=== PATIENT | male | born 2000 | race Caucasian/White ===

== ENCOUNTER 2020-03-02 18:13 | Emergency (ER) | payer MEDICAID, SELFPAY ==
[2020-03-02 18:22] VITALS: BP 128/81; PULSE 95; RESP 20; TEMP 36.7; O2SAT 98; BMI 38.0
[2020-03-02 19:13] VITALS: BP 118/73; PULSE 90; RESP 16; TEMP 36.6; O2SAT 97
[2020-03-02] MEDS: methylPREDNISolone Sod Succ/PF 125 MG/2 ML VIAL IVPUSH (19:38)
[2020-03-02] MEDS: diphenhydrAMINE HCL 50 MG/ML VIAL 25 MG IVPUSH (19:38)
[2020-03-02] MEDS: Famotidine/PF 20 MG/2 ML VIAL IVPUSH (19:38)
[2020-03-02] MEDS: 0.9 % Sodium Chloride 1,000 ML 999 ML IVCONT (19:40)
--- NOTE | 2020-03-02 19:43 | ED.ALLEREA ---
HPI - Allergic Reaction General Chief complaint: Allergic Reaction Stated complaint: allergic reaction Time Seen by Provider: 03/02/20 18:57 Source: patient Mode of arrival: ambulatory Limitations: no limitations History of Present Illness HPI narrative: 20-year-old male presents with urticaria to his arms, hands, face and chest. Does not know what he was exposed to and has had an experience like this several months ago. He he did take Benadryl 50 mg twice today, once at noon and once at 2:00 p.m. With minimal effect. Patient does not report any respiratory problems, pain on inspiration, chest pain or pressure, palpitations, shortness of breath, stridor, difficulty swallowing, difficulty managing secretions, edema, abdominal pain, nausea, vomiting, diarrhea, or constipation. MD complaint: allergic reaction and hives Onset (ago): hour(s) ( Several) Exposure: unknown Symptoms: rash and itching Severity: moderate Treatment prior to arrival: benadryl Previous Allergic Reaction History: prior ED visit(s) Related Data Previous Rx's Medication Instructions Recorded diphenhydramine HCl [Benadryl] 25 mg PO Q6H 3 Days #12 cap 03/02/20 famotidine [Pepcid] 20 mg PO DAILY 5 Days #5 tab 03/02/20 prednisone 60 mg PO DAILY 5 Days #15 tab 03/02/20 Allergies Allergy/AdvReac Type Severity Reaction Status Date / Time No Known Allergies Allergy Unverified 01/04/20 19:14 [No Known Allergies*] Review of Systems Review of Systems: Constitutional: No Fever, No Chills ENT/Mouth: no oral swelling, No Hoarseness, No Swallowing Difficulty Eyes: No Eye Pain, No Swelling, No Redness Cardiovascular: No Chest Pain, No SOB Respiratory: No Cough, No Sputum, No Wheezing, No Smoke Exposure, No Dyspnea Gastrointestinal: No Nausea, No Vomiting, No Diarrhea, No abdominal Pain Genitourinary: No Dysuria, No Urinary Frequency, No Hematuria Musculoskeletal: No joint pain, No Myalgias, No Joint Swelling Skin: No Skin Lesions, positive rash Neuro: No Weakness, No Numbness, No Headache Psych: No Anxiety/Panic, No Depression Heme/Lymph: No Bruising, No Lymphadenopathy Endocrine: No Polyuria, No Polydipsia Yes all other systems are reviewed and are negative [facility] Past Medical History Attestation statement: The following information was validated with the patient. Medical History No known health problems Social History Social History Alcohol intake: never Smoking Status: Never smoker Use of substances other than those prescribed or required for medical reasons: No Advance Directives: No Advance Directives Information Provided: Yes Physical Exam Vital Signs: Vital Signs: Last Vital Signs Temp 97.9 F 03/02/20 19:13 Pulse 90 03/02/20 19:13 Resp 16 03/02/20 19:13 BP 118/73 03/02/20 19:13 Pulse Ox 97 03/02/20 19:13 Body Mass Index 38.0 Appearance: Alert. Oriented X3. No acute distress. Eyes: Pupils equal, round and reactive to light. ENT: Pharynx normal. No edema noted. Neck: Normal inspection. Neck supple. CVS: Normal heart rate and rhythm. Pulses normal. Respiratory: No respiratory distress. Breath sounds normal. Lung sounds clear in all lobes, no tracheal stridor noted. Abdomen: Soft and nontender. Skin: urticaria to face, hands, arms, and chest. Skin warm and dry. Normal skin color. Normal skin turgor. Extremities: No lower extremity edema. Neuro: No motor deficit. No sensory deficit. Cranial nerves 2-12 intact. Course Course Course Narrative: 20-year-old male with urticaria after none known exposure, took Benadryl twice today with minimal effect. Plan of care is for fluid resuscitation, IV Pepcid, IV Benadryl, and Solu-Medrol. We will re-evaluate in approximately 1 hour after medication administration. Urticaria visibly decreased, pink spots to hands, urticaria no longer present to forearms and and pinkness to face no longer present. Lung sounds are clear to auscultation all lobes, no stridor noted trachea, cranial nerves 2-12 intact, no angioedema noted. Plan of care is to discharge home, patient must follow up with primary care physician for allergy testing. He does verbalize understanding of and agrees to plan of care discharge home. We will give Benadryl q.6 for the next 3 days, and prednisone burst. MDM - Allergic Reaction Differential Diagnosis Differential diagnosis: Likely allergic reaction, contact dermatitis, adverse reaction to drug, viral enanthem and urticaria Medical Records Attestation: I reviewed the patient's medical records. Lab Data Attestation: I reviewed the patient's lab results. Discharge Plan Discharge Clinical Impression: Allergic reaction, Urticaria Patient Disposition: Home, Self-Care Instructions: Urticaria (ED), General Allergic Reaction (ED) Additional Instructions: you were evaluated for an allergic reaction. Please follow-up with primary care physician as you need allergy testing this is your 2nd emergency department visit this year for urticaria and allergic reaction. Please take Benadryl 50 mg every 6 hours for the next 3 days and then as needed. Take prednisone 60 mg every morning for the next 5 days. If symptoms persist or get worse return to the emergency department. Thank you for choosing this emergency department for evaluation. Please follow-up with primary care physician as needed. Return to the emergency department for any new, concerning, or worsening symptoms. Prescriptions: New prednisone 20 mg tablet 60 mg PO DAILY 5 Days Qty: 15 RF: 0 famotidine [Pepcid] 20 mg tablet 20 mg PO DAILY 5 Days Qty: 5 RF: 0 diphenhydramine HCl [Benadryl] 25 mg capsule 25 mg PO Q6H 3 Days Qty: 12 RF: 0 Stand Alone Forms: Work/School Release Interventions: ED Discharge Assessment Last Done: 03/02/20 21:15 Discharge Date/Time: 03/02/20 21:16
== END 2020-03-02 21:16 | disposition home or self-care (01) ==
PROVIDERS: Emergency Provider Emergency Medicine; PCP Pediatrics
DX: L50.0 Allergic urticaria (principal); Z79.899 Other long term (current) drug therapy
CPT/HCPCS: 96361; 96374; 96375; 99284; J1200; J2930

== ENCOUNTER 2020-03-25 16:58 | Emergency (ER) | payer MEDICAID, SELFPAY ==
[2020-03-25 17:04] VITALS: BP 105/65; PULSE 123; RESP 16; TEMP 37.1; O2SAT 95; BMI 38.0
--- NOTE | 2020-03-25 19:40 | ED.ALLEREA ---
HPI - Allergic Reaction General Chief complaint: Allergic Reaction Stated complaint: Alergic reaction Time Seen by Provider: 03/25/20 19:40 Source: patient Mode of arrival: ambulatory Limitations: no limitations History of Present Illness HPI narrative: patient with history of chronic aortic area for last 1 year seen by a GI specialist had many tests done Benadryl as needed. On Xolair injections monthly comes here with urticarial rash for last few days getting worse taking Benadryl with still not getting better complaining of slight upper lip swelling no difficulty in swallowing or shortness of breath MD complaint: allergic reaction, hives and facial swelling Onset (ago): month(s) Exposure: unknown Related Data Previous Rx's Medication Instructions Recorded diphenhydramine HCl [Benadryl] 25 mg PO Q6H 3 Days #12 cap 03/02/20 famotidine [Pepcid] 20 mg PO DAILY 5 Days #5 tab 03/02/20 prednisone 60 mg PO DAILY 5 Days #15 tab 03/02/20 montelukast [Singulair] 10 mg PO BEDTIME #30 tab 03/25/20 prednisone 40 mg PO DAILY #10 tab 03/25/20 Allergies Allergy/AdvReac Type Severity Reaction Status Date / Time No Known Allergies Allergy Verified 03/25/20 17:06 [No Known Allergies*] Review of Systems Review of Systems: REVIEW OF SYSTEMS: Pertinent positives and negatives are stated above in the history. GEN: no fevers, chills, fatigue HEENT: no nasal congestion, sore throat, ear pain upper lip slight swelling+ tongue is normal NEURO: no headache, dizziness, focal weakness PULM: no cough, shortness of breath CV: no chest pain, palpitations, LE edema ABD: no abdominal pain, nausea, vomiting, diarrhea : no dysuria, urgency, frequency SKIN: hives all over ROS otherwise negative x 10 PMFSH Past Medical History Medical History No known health problems Social History Social History Alcohol intake: never Smoking Status: Never smoker Advance Directives: No Physical Exam Vital Signs: Vital Signs: Last Vital Signs Temp 98.7 F 03/25/20 17:04 Pulse 123 H 03/25/20 17:04 Resp 16 03/25/20 17:04 BP 105/65 03/25/20 17:04 Pulse Ox 95 03/25/20 17:04 Body Mass Index 38.0 Appearance: Alert. Oriented X3. No acute distress. Eyes: Pupils equal, round and reactive to light. ENT: Pharynx normal. slight swelling of the upper lip, tongue is normal uvula is normal no stridor Neck: Normal inspection. Neck supple. CVS: Normal heart rate and rhythm. Pulses normal. Respiratory: No respiratory distress. Breath sounds normal. Abdomen: Soft and nontender. Skin: Skin warm and dry. urticarial rash all over extremities and trunk. Normal skin turgor. Extremities: No lower extremity edema. Good range of movement Neuro: Oriented X 3. No motor deficit. No sensory deficit. Discharge Plan Discharge Clinical Impression: Urticaria Patient Disposition: Home, Self-Care Instructions: Urticaria (ED) Additional Instructions: continue Benadryl 1-2 tablets every 6 hours advised starting prednisone from tomorrow. Follow-up with allergic specialist Prescriptions: New prednisone 20 mg tablet 40 mg PO DAILY Qty: 10 RF: 0 montelukast [Singulair] 10 mg tablet 10 mg PO BEDTIME Qty: 30 RF: 0 No Action prednisone 20 mg tablet 60 mg PO DAILY 5 Days Qty: 15 RF: 0 famotidine [Pepcid] 20 mg tablet 20 mg PO DAILY 5 Days Qty: 5 RF: 0 diphenhydramine HCl [Benadryl] 25 mg capsule 25 mg PO Q6H 3 Days Qty: 12 RF: 0
[2020-03-25] MEDS: dexAMETHasone 2 MG TABLET 10 MG PO (20:02)
[2020-03-25 20:05] VITALS: BP 116/76; PULSE 103; RESP 17; O2SAT 97
== END 2020-03-25 20:13 | disposition home or self-care (01) ==
PROVIDERS: Emergency Provider Internal Medicine; PCP Pediatrics
DX: L50.9 Urticaria, unspecified (principal); T78.40XA Allergy, unspecified, initial encounter; X58.XXXA Exposure to other specified factors, initial encounter
CPT/HCPCS: 99283; J8540

== ENCOUNTER 2020-03-27 13:16 | Emergency (ER) | payer MEDICAID, SELFPAY ==
[2020-03-27 13:22] VITALS: BP 109/65; PULSE 88; RESP 16; TEMP 36.9; O2SAT 97; BMI 38.0
--- NOTE | 2020-03-27 13:49 | ED_ITS ---
HPI - Allergic Reaction General Chief complaint: Skin/Abscess/Foreign Body Stated complaint: allergic reaction Time Seen by Provider: 03/27/20 13:48 Source: patient Mode of arrival: ambulatory Limitations: no limitations History of Present Illness HPI narrative: that states has history of allergies he broke out with rash 2 days ago after eating chicken/baking male who for which he came to the emergency room he was evaluated. Subsequently given prednisone for home he took his 1st dose this morning however last night he ate the same meal and woke up with similar rash to bilateral upper arms and thighs. he denies any abdominal pain, nausea vomiting or diarrhea. Denies any swelling on the face or trouble breathing. States he took again his 1st dose of prednisone 60 mg this morning. MD complaint: allergic reaction Onset (ago): hour(s) Exposure: food Symptoms: rash Severity: mild Previous Allergic Reaction History: prior ED visit(s) Related Data Previous Rx's Medication Instructions Recorded diphenhydramine HCl [Benadryl] 25 mg PO Q6H 3 Days #12 cap 03/02/20 famotidine [Pepcid] 20 mg PO DAILY 5 Days #5 tab 03/02/20 prednisone 60 mg PO DAILY 5 Days #15 tab 03/02/20 montelukast [Singulair] 10 mg PO BEDTIME #30 tab 03/25/20 prednisone 40 mg PO DAILY #10 tab 03/25/20 famotidine [Pepcid] 20 mg PO BID #10 tab 03/27/20 prednisone 20 mg PO DAILY #7 tab 03/27/20 Allergies Allergy/AdvReac Type Severity Reaction Status Date / Time No Known Allergies Allergy Verified 03/25/20 17:06 [No Known Allergies*] Review of Systems Review of Systems: Constitutional: No Weight loss, No Fever, No Chills, No Night Sweats, No Fatigue, No Malaise ENT/Mouth: No Hearing loss, No Ear Pain, No Nasal Congestion, No Sinus Pain, No Hoarseness, No sore throat, No Rhinorrhea, No Swallowing Difficulty Eyes: No Eye Pain, No Swelling, No Redness, No Foreign Body, No Discharge, No Vision Changes Cardiovascular: No Chest Pain, No SOB, No Dyspnea on Exertion, No Orthopnea, No Edema, No Palpitations Respiratory: No Cough, No Sputum, No Wheezing, No Smoke Exposure, No Dyspnea Gastrointestinal: No Nausea, No Vomiting, No Diarrhea, No Constipation, No abdominal Pain, No Hematochezia, No Melena Genitourinary: no irregular bleeding, No Dysuria, No Urinary Frequency, No Hematuria, No Urinary Incontinence, No Urgency, No Flank Pain, No Urinary Flow Changes, No Hesitancy Musculoskeletal: No joint pain, No Myalgias, No Joint Swelling Skin: No Skin Lesions, As noted per HPI Neuro: No Weakness, No Numbness, No Paresthesias, No Loss of Consciousness, No Dizziness, No Headache Psych: No Social Issues Heme/Lymph: No Bruising, No Bleeding,No Lymphadenopathy Endocrine: No Polyuria, No Polydipsia, No Temperature Intolerance Yes all other systems are reviewed and are negative [facility] Past Medical History Medical History No known health problems Social History Social History Alcohol intake: never Smoking Status: Never smoker Advance Directives: No Advance Directives Information Provided: No Physical Exam Vital Signs: Vital Signs: Last Vital Signs Temp 98.3 F 03/27/20 15:44 Pulse 72 03/27/20 15:44 Resp 16 03/27/20 15:44 BP 100/70 03/27/20 15:44 Pulse Ox 97 03/27/20 15:44 Body Mass Index 38.0 Reviewed Const: General: cooperative and healthy appearing; No acute distress or intoxicated appearing Nutritional Appearance: average body habitus Orientation/consciousness: patient oriented x3 HENMT: Head: Yes normal to inspection Ears: hearing grossly normal bilaterally Eyes: General: appearance normal, both eyes and all related structures Visual Vela: normal visual vela by confrontation Chest: Chest palpation & inspection: normal inspection of the chest Resp: Effort & Inspection: normal respiratory effort Cardio: Jugular venous distension: no JVD GI: Inspection: Yes normal to inspection Percussion: Yes normal to percussion Auscultation: normal bowel sounds : General: Yes no CVA tenderness Back/Spine/Pelvis: Back: no CVA tenderness Skin: Other: Rates rhythmic a rash to the right upper arm patchy area as well as the forearm and left forearm and right thigh area. Slight on the left side of the abdomen none on the back. Neuro: General: patient oriented x3 Extrem: General: Yes normal to inspection Course Course Course Narrative: Much improved after IV Benadryl and Pepcid essentially urticaria almost fully resolved. No upper respiratory involvement / angioedema. Likely food allergy his history of hypersensitivity has seen it support engineer in the past. He did skip prednisone dose that was given here he will continue to take the 60 mg for the remainder of the 4 days. Will be given Pepcid. Will continue over the counter Benadryl. Clear return follow-up instructions provided. Discharge Plan Discharge Clinical Impression: Allergic reaction Patient Disposition: Home, Self-Care Instructions: Urticaria (ED), Food Allergy (ED) Additional Instructions: take prednisone 60 mg once daily for the full duration of the remainder of the 4 days Benadryl [id number] per label instructions Pepcid as prescribed Return if any concerns or worsening symptoms otherwise continue to keep a food diary log Avoid any new foods, detergent use, perfumes or lotions follow-up as planned with the it support engineer for further evaluation after this episode is over Thank you Prescriptions: New prednisone 20 mg tablet 20 mg PO DAILY Qty: 7 RF: 0 famotidine [Pepcid] 20 mg tablet 20 mg PO BID Qty: 10 RF: 0 No Action prednisone 20 mg tablet 40 mg PO DAILY Qty: 10 RF: 0 montelukast [Singulair] 10 mg tablet 10 mg PO BEDTIME Qty: 30 RF: 0 prednisone 20 mg tablet 60 mg PO DAILY 5 Days Qty: 15 RF: 0 famotidine [Pepcid] 20 mg tablet 20 mg PO DAILY 5 Days Qty: 5 RF: 0 diphenhydramine HCl [Benadryl] 25 mg capsule 25 mg PO Q6H 3 Days Qty: 12 RF: 0 Stand Alone Forms: Work/School Release Discharge Date/Time: 03/27/20 16:37
[2020-03-27] MEDS: Famotidine/PF 20 MG/2 ML VIAL IVPUSH (14:19)
[2020-03-27] MEDS: diphenhydrAMINE HCL 50 MG/ML VIAL 25 MG IVPUSH (14:22)
[2020-03-27] MEDS: methylPREDNISolone Sod Succ/PF 125 MG/2 ML VIAL IVPUSH (14:23)
--- NOTE | 2020-03-27 14:54 | PC.NURSE ---
medicated per emar, pt resting, hives appear to be resolving,
[2020-03-27 15:44] VITALS: BP 100/70; PULSE 72; RESP 16; TEMP 36.8; O2SAT 97
== END 2020-03-27 16:37 | disposition home or self-care (01) ==
PROVIDERS: Emergency Provider Emergency Medicine; PCP Pediatrics
DX: T78.1XXA Other adverse food reactions, not elsewhere classified, initial encounter (principal); L50.9 Urticaria, unspecified; X58.XXXA Exposure to other specified factors, initial encounter
CPT/HCPCS: 96374; 96375; 99284; J1200; J2930

== ENCOUNTER 2020-03-28 18:59 | Emergency (ER) | payer MEDICAID, SELFPAY ==
[2020-03-28 19:07] VITALS: BP 135/76; PULSE 88; RESP 16; TEMP 36.6; O2SAT 96; BMI 41.8
[2020-03-28] MEDS: Famotidine/PF 20 MG/2 ML VIAL IVPUSH (19:20)
[2020-03-28] MEDS: diphenhydrAMINE HCL 50 MG/ML VIAL IVPUSH (19:21)
[2020-03-28] MEDS: methylPREDNISolone Sod Succ/PF 125 MG/2 ML VIAL IVPUSH (19:21)
--- NOTE | 2020-03-28 19:44 | ED.ALLEREA ---
HPI - Allergic Reaction General Chief complaint: Allergic Reaction Stated complaint: ALLERGIC REACTION Time Seen by Provider: 03/28/20 19:07 Source: patient Mode of arrival: EMS Limitations: no limitations History of Present Illness HPI narrative: Patient presents to ED for allergic reaction after eating chicken broth made by mother. Patient does not have any known allergies. Patient states that this started around 02:00 o'clock since then he has had itchiness and rash all over his body. Patient states he took 50 mg of Benadryl around 14:00. Patient denies any swelling of lips, tongue, or sensation of throat closing. Related Data Previous Rx's Medication Instructions Recorded diphenhydramine HCl [Benadryl] 25 mg PO Q6H 3 Days #12 cap 03/02/20 famotidine [Pepcid] 20 mg PO DAILY 5 Days #5 tab 03/02/20 prednisone 60 mg PO DAILY 5 Days #15 tab 03/02/20 montelukast [Singulair] 10 mg PO BEDTIME #30 tab 03/25/20 prednisone 40 mg PO DAILY #10 tab 03/25/20 famotidine [Pepcid] 20 mg PO BID #10 tab 03/27/20 prednisone 20 mg PO DAILY #7 tab 03/27/20 Allergies Allergy/AdvReac Type Severity Reaction Status Date / Time No Known Allergies Allergy Verified 03/25/20 17:06 [No Known Allergies*] Review of Systems Review of Systems: Itchiness, generalize rash Yes all other systems are reviewed and are negative Constitutional: Constitutional: Reports as per HPI and Reports no additional constitutional complaints Eyes: Eyes: Reports as per HPI and Reports no additional eye complaints ENT: Reports system reviewed and no additional complaints, except as documented and Reports as per HPI Cardiovascular: Cardiovascular: Reports as per HPI and Reports no additional cardiovascular complaints Respiratory: Respiratory: Reports as per HPI and Reports no additional respiratory complaints Gastrointestinal: Gastrointestinal: Reports as per HPI and Reports no additional gastrointestinal complaints Genitourinary: Genitourinary: Reports no additional male genitourinary complaints and Reports as per HPI Musculoskeletal: Musculoskeletal: Reports no additional musculoskeletal complaints and Reports as per HPI Neurologic: Reports system reviewed and no additional complaints, except as documented and Reports as per HPI Psychiatric: Psychiatric: Reports no additional psychiatric complaints and Reports as per HPI PMFSH Past Medical History Medical History No known health problems Social History Social History Alcohol intake: never Smoking Status: Never smoker Advance Directives: No Advance Directives Information Provided: No Physical Exam Vital Signs: Vital Signs: Last Vital Signs Temp 98.3 F 03/28/20 22:00 Pulse 66 03/28/20 22:00 Resp 16 03/28/20 22:00 BP 117/63 03/28/20 22:00 Pulse Ox 96 03/28/20 22:00 Body Mass Index 41.8 Const: General: cooperative, healthy appearing, comfortable, no acute distress, well developed, alert, awake and Physically active Orientation/consciousness: patient oriented x3 HENMT: Other: Negative for any swelling of lips, tongue, or uvula. Uvula is midline. Head: Yes normal to inspection and Yes No palpable skull fracture present Eyes: General: appearance normal, both eyes and all related structures Neck: Neck: Yes normal visual inspection, Yes full ROM, Yes no lymphadenopathy, Yes no meningeal signs, Yes trachea midline, Yes supple and No tender Chest: Other: Positive for uticarial rash Chest palpation & inspection: normal inspection of the chest and normal palpation of entire chest wall Resp: Effort & Inspection: normal respiratory effort and able to speak in complete sentences Auscultation: clear to auscultation bilaterally Cardio: Jugular venous distension: no JVD Heart sounds: S1 normal heart sound present and S2 normal heart sound present GI: Other: positive for uticarial rash Inspection: Yes normal to inspection and No abdominal wall ecchymosis Palpation (GI): Soft to palpation, not firm, nontender, no guarding and not rigid : General: No CVA tenderness and Yes no CVA tenderness Back/Spine/Pelvis: Other: positive for uticarial rash Back: no CVA tenderness, No CVA tenderness and No back tenderness Skin: Other: positive for generalized uticarial rash on chest, abdomen, back, and extremities Neuro: General: patient oriented x3, gait normal, no meningeal signs and CN's II-XI intact bilaterally Cranial nerves: Yes CN's II-XII intact bilaterally Extrem: General: Yes normal to inspection and Yes full ROM Psych: Appearance: grossly normal, well kempt and not disheveled Course Course Course Narrative: History &physical exam indicate allergic reaction. Patient given Benadryl, Solu-Medrol, Pepcid Reevaluation(s) Reevaluation #1: Patient states feels better. Patient informed he has had recurrence allergic reactions to unknown source. Patient informed to follow-up with his PCP to have patch test done. Patient informed to continue taking prednisone and Pepcid he was prescribed yesterday for similar presentation and to continue taking [id number] Benadryl as needed. Time: 22:19 MDM - Allergic Reaction MDM Narrative Medical decision making narrative: Allergic reaction Discharge Plan Discharge Clinical Impression: Allergic reaction Patient Disposition: Home, Self-Care Instructions: Urticaria (ED), General Allergic Reaction (ED) Additional Instructions: Return to the ED for any swelling of lips, shortness of breath, swelling of tongue, fever, chills, worsening rash, or any other concerning symptoms. Recommend follow-up with PCP for patch test. Prescriptions: No Action prednisone 20 mg tablet 40 mg PO DAILY Qty: 10 RF: 0 montelukast [Singulair] 10 mg tablet 10 mg PO BEDTIME Qty: 30 RF: 0 prednisone 20 mg tablet 60 mg PO DAILY 5 Days Qty: 15 RF: 0 famotidine [Pepcid] 20 mg tablet 20 mg PO DAILY 5 Days Qty: 5 RF: 0 diphenhydramine HCl [Benadryl] 25 mg capsule 25 mg PO Q6H 3 Days Qty: 12 RF: 0 prednisone 20 mg tablet 20 mg PO DAILY Qty: 7 RF: 0 famotidine [Pepcid] 20 mg tablet 20 mg PO BID Qty: 10 RF: 0 Interventions: ED Discharge Assessment Last Done: 03/28/20 22:44 Discharge Date/Time: 03/28/20 22:45 Print Language: Trin[place]
[2020-03-28 20:00] VITALS: BP 132/88; PULSE 71; RESP 17; TEMP 36.5; O2SAT 98
[2020-03-28 20:51] VITALS: BP 113/62; PULSE 71; RESP 16; O2SAT 98
--- NOTE | 2020-03-28 20:59 | PC.NURSE ---
PT DENIES ANY COMPLAINTS. VS - WNL. PT'S HIVES ON BACK HAVE IMPROVED SLIGHTLY BUT STILL VISABLE. PT DENIES SOB. PO 98% ON 2L.
[2020-03-28 22:00] VITALS: BP 117/63; PULSE 66; RESP 16; TEMP 36.8; O2SAT 96
--- NOTE | 2020-03-28 22:07 | PC.NURSE ---
PT STATES IM FEELING BETTER PA AWARE.
== END 2020-03-28 22:45 | disposition home or self-care (01) ==
PROVIDERS: Emergency Provider Internal Medicine
DX: T78.40XA Allergy, unspecified, initial encounter (principal); L50.9 Urticaria, unspecified; X58.XXXA Exposure to other specified factors, initial encounter
CPT/HCPCS: 99284; J1200; J2930

== ENCOUNTER 2020-03-31 05:41 | Emergency (ER) | payer MEDICAID, SELFPAY ==
[2020-03-31 05:46] VITALS: BP 107/58; PULSE 122; RESP 18; TEMP 37.4; O2SAT 96; BMI 38.0
--- NOTE | 2020-03-31 06:39 | ED_ITS ---
HPI - Allergic Reaction General Chief complaint: Allergic Reaction Stated complaint: allergic reactions Time Seen by Provider: 03/31/20 06:39 Source: patient Mode of arrival: ambulatory Limitations: no limitations History of Present Illness HPI narrative: This is a 20-year-old male who presents for his 5th visit within a month regarding his chronic urticaria it is not associated with fevers, chills, shortness of breath, chest pain/palpitations, change in medications, or change in urticarial pattern. Patient states that he is currently being worked up for this and this has been an ongoing problem for approximately 1 year. He is currently under the care an consumer loan processor and receives Xolair injections. He states he has an appointment with Dr. Montgomery, his consumer loan processor, this Wednesday/Wednesday. Related Data Previous Rx's Medication Instructions Recorded diphenhydramine HCl [Benadryl] 25 mg PO Q6H 3 Days #12 cap 03/02/20 prednisone 60 mg PO DAILY 5 Days #15 tab 03/02/20 montelukast [Singulair] 10 mg PO BEDTIME #30 tab 03/25/20 famotidine [Pepcid] 20 mg PO BID #10 tab 03/27/20 Allergies Allergy/AdvReac Type Severity Reaction Status Date / Time No Known Allergies Allergy Verified 03/25/20 17:06 [No Known Allergies*] Review of Systems Review of Systems: Pertinent positives and negatives as stated in HPI 10 point review of systems is otherwise negative. PMFSH Past Medical History Source: nursing notes reviewed Medical History (Updated 03/31/20 @ 08:06 by Augustina Rangel MD) No known health problems Urticaria Social History Social History Alcohol intake: never Smoking Status: Current every day smoker Use of substances other than those prescribed or required for medical reasons: No Advance Directives: No Advance Directives Information Provided: No Physical Exam Vital Signs: Vital Signs: Last Vital Signs Temp 99.3 F 03/31/20 05:46 Pulse 122 H 03/31/20 05:46 Resp 18 03/31/20 05:46 BP 107/58 L 03/31/20 05:46 Pulse Ox 96 03/31/20 05:46 Body Mass Index 38.0 VITAL SIGNS: Reviewed. GENERAL: Well developed, well nourished, in no acute distress. HEAD: Normocephalic/atraumatic, EYES: PERRLA, EOMI intact without pain, no nystagmus/pallor/icterus noted EARS: Ext canals without abnormality, TMs non-bulging and non-erythematous NOSE: Nares patent bilateral OROPHARYNX: no oral lesions noted, posterior pharynx clear and non-erythematous without noted tonsillar enlargement/erythema/exudates NECK: Supple, no adenopathy LUNGS: Normal breath sounds. No adventitious sounds or accessory muscle use. SpO2<96> CARDIOVASCULAR: Regular rate and rhythm without noted murmurs, no JVD or lower extremity edema. ABDOMEN: Soft, non-tender, non-distended with bowel sounds. No rigidity. No guarding. No palpable masses or hernias noted MUSCULOSKELETAL: No tenderness, deformities, or effusions noted on gross inspection. EXTREMITIES: No cyanosis, clubbing or edema. SKIN: Inspection of the skin reveals urticarial rash over all extremities/trunk but spares palms/soles/oral cavity but negative Nikolsky sign NEUROLOGIC: Alert and oriented x 4. Strength and sensation to light touch were grossly intact x 4. Course Course Course Narrative: This is a 20-year-old male with history and clinical presentation consistent with chronic urticaria currently undergoing treatment by an consumer loan processor, but has been in to be seen by this emergency department multiple times over the past month and placed on oral steroids for rash control. Patient received strictly 50 mg of Benadryl wall in the emergency department this morning and was strongly counseled on following up with his consumer loan processor for further interventions but was also encouraged that should he experience any respiratory difficulties or facial swelling. Patient was discharged in stable condition without evidence of tachypnea, hypoxia. Discharge Plan Discharge Clinical Impression: Urticaria Patient Disposition: Home, Self-Care Instructions: Urticaria (ED) Additional Instructions: Follow-up with your consumer loan processor as scheduled. Do not hesitate to return to the emergency department should you experience any facial swelling or difficulty breathing. Prescriptions: No Action montelukast [Singulair] 10 mg tablet 10 mg PO BEDTIME Qty: 30 RF: 0 prednisone 20 mg tablet 60 mg PO DAILY 5 Days Qty: 15 RF: 0 diphenhydramine HCl [Benadryl] 25 mg capsule 25 mg PO Q6H 3 Days Qty: 12 RF: 0 famotidine [Pepcid] 20 mg tablet 20 mg PO BID Qty: 10 RF: 0 Referrals: Floyd Francois MD [Primary Care Provider] - 2 days (Urticaria) Supriya Montgomery DO [Physician] - 2 days (Recurrent urticarial rash.)
[2020-03-31] MEDS: diphenhydrAMINE HCL 50 MG/ML VIAL IVPUSH (06:55)
== END 2020-03-31 08:36 | disposition home or self-care (01) ==
PROVIDERS: Emergency Provider Student in an Organized Health Care Education/Training Program; PCP Pediatrics
DX: L50.0 Allergic urticaria (principal); Z79.899 Other long term (current) drug therapy; F17.200 Nicotine dependence, unspecified, uncomplicated; Z71.6 Tobacco abuse counseling
CPT/HCPCS: 96374; 99284; J1200

== ENCOUNTER 2020-12-29 10:37 | Emergency (ER) | payer MEDICAID, SELFPAY ==
--- NOTE | ~2020-12-29 | CT_ITS ---
EXAMINATION: CT ABDOMEN AND PELVIS WITHOUT CONTRAST CLINICAL INFORMATION: Left flank pain. COMPARISON: None TECHNIQUE: Multidetector volumetric imaging was performed from the superior aspect of the liver through the pubic symphysis. Sagittal and coronal reformatted images were obtained on the technologist's workstation. This CT examination was performed using dose optimization techniques as appropriate, variously including the following: *Automated exposure control *Adjustment of mA and/or kV according to patient size (this includes techniques or standardized protocols for targeted exams where dose is matched to indication/reason for exam; i.e. extremities or head) *Use of iterative reconstruction technique DLP: 873 mGy-cm FINDINGS: LUNG BASES: The visualized lung bases are unremarkable. LIVER, GALLBLADDER, AND BILIARY TREE: Relative hypoattenuation in the pancreatic parenchyma is consistent with steatosis. There is focal fatty sparing around the gallbladder fossa. No focal lesions are identified on these unenhanced images. No appreciable biliary ductal dilatation. The gallbladder is unremarkable with no evidence of radiopaque gallstones, gallbladder wall thickening, or obvious pericholecystic inflammatory changes. PANCREAS: Unremarkable. SPLEEN: Unremarkable. ADRENAL GLANDS: Unremarkable. KIDNEYS AND URETERS: A 5 mm calculus in the left mid ureter at the level of the L3 vertebral body produces mild left proximal hydroureteronephrosis. Point attenuation of this calculus measures 1229 Hounsfield units. No significant surrounding perinephric or periureteral fat stranding. The kidneys are normal in size, shape, and attenuation. No right-sided hydronephrosis, hydroureter, or calculi seen. No additional left-sided renal calculi. BLADDER: Unremarkable. GASTROINTESTINAL TRACT: Stomach, small bowel, and colon are normal in caliber. No bowel wall thickening or surrounding inflammatory changes. Appendix is normal. No intraperitoneal free fluid or free air. ABDOMINAL WALL: No significant hernia is appreciated. LYMPH NODES: Normal. VASCULAR: Unremarkable. PELVIC VISCERA: The prostate and seminal vesicles are unremarkable. OSSEOUS STRUCTURES: Mild scoliotic curvature in the thoracolumbar spine. No acute osseous abnormalities. Posterior disc protrusion is evident at the L4-L5 level. CT/CT abdomen pelvis wo con IMPRESSION: 1. A 5 mm calculus at the left mid ureter produces mild proximal hydroureteronephrosis. 2. Hepatic steatosis.
[2020-12-29 10:49] VITALS: BP 139/94; PULSE 58; RESP 19; TEMP 36.6; O2SAT 100; BMI 34.9
--- NOTE | 2020-12-29 10:53 | ED.ABDPAIN ---
HPI - Abdominal Pain General Chief Complaint: Abdominal Pain Stated Complaint: LL QUAD/ABD PAIN,BLOOD IN URINE Time Seen by Provider: 12/29/20 10:43 Source: patient and EMS Mode of arrival: EMS Limitations: no limitations History of Present Illness HPI narrative: Patient comes emergency room complaining of 1 week of left lower quadrant pain, left flank pain, nausea. Patient states he was seen by his primary care physician, he was told that he needs an ultrasound and lab work. However, patient could not tolerate the pain and came today. Patient states that he has passed kidney stones in the past but this time hurts more than the last time. Patient denies fever chills, patient was told by his PCP that there was blood in the urine, patient currently not on any antibiotics. Related Data Previous Rx's Medication Instructions Recorded diphenhydramine HCl 25 mg capsule 25 mg PO Q6H 3 Days #12 cap 03/02/20 (Benadryl) prednisone 20 mg tablet 60 mg PO DAILY 5 Days #15 tab 03/02/20 montelukast 10 mg tablet 10 mg PO BEDTIME #30 tab 03/25/20 (Singulair) famotidine 20 mg tablet (Pepcid) 20 mg PO BID #10 tab 03/27/20 ketorolac 10 mg tablet 10 mg PO TID PRN 3 Days #10 tab 12/29/20 ondansetron HCl 4 mg tablet 4 mg PO Q6H PRN #14 tab 12/29/20 (Zofran) prednisone 20 mg tablet 20 mg PO DAILY #4 tab 12/29/20 tamsulosin 0.4 mg capsule 0.4 mg PO DAILY #7 cap 12/29/20 Allergies Allergy/AdvReac Type Severity Reaction Status Date / Time No Known Allergies Allergy Verified 03/25/20 17:06 [No Known Allergies*] Review of Systems Review of Systems Constitutional : No Weight loss, No Fever, No Chills, No Night Sweats, No Fatigue, No Malaise ENT/Mouth : No Hearing loss, No Ear Pain, No Nasal Congestion, No Sinus Pain, No Hoarseness, No sore throat, No Rhinorrhea, No Swallowing Difficulty Eyes: No Eye Pain, No Swelling, No Redness, No Foreign Body, No Discharge, No Vision Changes Cardiovascular : No Chest Pain, No SOB, No Dyspnea on Exertion, No Orthopnea, No Edema, No Palpitations Respiratory : No Cough, No Sputum, No Wheezing, No Smoke Exposure, No Dyspnea Gastrointestinal : No Nausea, No Vomiting, No Diarrhea, No Constipation, complaining of left lower quadrant pain, left flank pain, No Hematochezia, No Melena Genitourinary : no irregular bleeding, No Dysuria, No Urinary Frequency, informed that he has microscopic hematuria, No Urinary Incontinence, No Urgency, No Flank Pain, No Urinary Flow Changes, No Hesitancy Musculoskeletal : No joint pain, No Myalgias, No Joint Swelling Skin : No Skin Lesions, No rash Neuro : No Weakness, No Numbness, No Paresthesias, No Loss of Consciousness, No Dizziness, No Headache Psych : No Anxiety/Panic, No Depression, No SI/HI/AH/VH, No Social Issues, Heme/Lymph: No Bruising, No Bleeding,No Lymphadenopathy Endocrine : No Polyuria, No Polydipsia, No Temperature Intolerance Physical Exam Vital Signs: Vital Signs: Last Vital Signs Temp 98.4 F 12/29/20 12:27 Pulse 70 12/29/20 12:27 Resp 19 12/29/20 12:27 BP 105/58 L 12/29/20 12:27 Pulse Ox 97 12/29/20 12:27 Body Mass Index 34.9 Const: Other: Appearance: Alert. Oriented X3. No acute distress. Eyes: Pupils equal, round and reactive to light. ENT: Pharynx normal. Neck: Normal inspection. Neck supple. No lymph nodes noted. No crepitus CVS: Normal heart rate and rhythm. Pulses normal. Normal S1 and S2 Respiratory: No respiratory distress. Breath sounds normal. No Wheezing. No rales Abdomen: Soft and nontender. No rigidity. No distention. Positive CVA tenderness Skin: Skin warm and dry. Normal skin color. Normal skin turgor. Extremities: No lower extremity edema. No lower extremity edema. No Lacerations. No Rash Neuro: Oriented X 3. No motor deficit. No sensory deficit. Moving all extermities. No slurred speech. Course Course Course Narrative: Patient feels much better after IV medication, patient had the 1st dose of IV ketorolac. I discussed with him that he has a 5 mm stone in the left ureter. Urine has blood but no bacteria, no antibiotic needed. Patient will follow-up with urology. MDM - Abdominal Pain Lab Data Result diagrams: 12/29/20 11:03 12/29/20 11:03 Labs: Lab Results 12/29/20 12/29/20 12/29/20 Range/Units 11:03 11:03 11:03 WBC 11.6 H (4.8-10.8) X10*3/uL RBC 5.38 (4.60-5.80) X10*6/uL Hgb 16.6 (14.0-18.0) g/dl Hct 49.1 (42-52) % MCV 91.3 (80-98) fL MCH 30.9 (27.0-33.0) pg MCHC 33.8 (31.0-36.0) g/dl RDW 12.9 (11.0-16.0) % Plt Count 216 (160-400) X10*3/uL MPV 10.7 (9.4-12.4) fL Immature Gran % (Auto) 0.5 H (0.0-0.4) % Neut % (Auto) 71.0 (45-73) % Lymph % (Auto) 16.9 L (20-40) % [place] % (Auto) 6.2 (2-11) % Eos % (Auto) 5.2 H (0-4) % Baso % (Auto) 0.2 (0-2) % Lymph # (Auto) 2.0 (1.2-4.9) X10*3/uL [place] # (Auto) 0.7 (0.1-1.2) X10*3/uL Eos # (Auto) 0.6 H (0.0-0.4) X10*3/uL Baso # (Auto) 0.0 (0.0-0.2) X10*3/uL Abs Immat Gran (auto) 0.06 H (0.00-0.03) X10*3/uL Absolute Neuts (auto) 8.2 (2.0-8.3) X10*3/uL Absolute Nucleated RBC 0.000 (0.0-0.012) X10*3/uL Nucleated RBC % (auto) 0.0 (0.0-0.2) /100WBC Sodium 143 (135-145) mmol/L Potassium 4.7 (3.3-5.1) mmol/L Chloride 109 H (96-108) mmol/L Carbon Dioxide 24 (22-29) mmol/L Anion Gap 15 (12-20) BUN 8 L (9-16) mg/dL Creatinine 1.14 (0.5-1.4) mg/dL Estim Creat Clear Calc 120.0 Estimated GFR > 60 Random Glucose 106 (60-115) mg/dL Calcium 10.0 (8.4-10.2) mg/dL Total Bilirubin < 0.2 (0.0-1.0) mg/dL Direct Bilirubin < 0.2 (0.0-0.5) mg/dL AST 27 (5-37) U/L ALT 36 (0-40) U/L Alkaline Phosphatase 82 (39-117) U/L Total Protein 7.3 (6.5-8.0) g/dL Albumin 4.7 (3.5-5.0) g/dL Lipase 19 (8-78) U/L Urine Color YELLOW Urine Appearance CLEAR Urine pH 6.0 (5.0-8.0) Ur Specific [place] >= 1.030 H (1.005-1.025) Urine Protein TRACE (NEG-TRACE) MG/DL Urine Glucose (UA) NEG (NEG) MG/DL Urine Ketones NEG (NEG) MG/DL Urine Blood 2+ H (NEG) Urine Nitrite NEG (NEG) Ur Leukocyte Esterase NEG (NEG) Urine RBC 15-29 H (0) /HPF Urine WBC 0-2 (0-4) /HPF Ur Squamous Epith Cells TRACE /LPF Urine Bacteria NONE /LPF Urine Mucus TRACE /LPF Imaging Data CT scan - abdomen: Radiologist's impression: INDINGS: LUNG BASES: The visualized lung bases are unremarkable.? LIVER, GALLBLADDER, AND BILIARY TREE: Relative hypoattenuation in the pancreatic parenchyma is consistent with steatosis. There is focal fatty sparing around the gallbladder fossa. No focal lesions are identified on these unenhanced images. No appreciable biliary ductal dilatation. The gallbladder is unremarkable with no evidence of radiopaque gallstones, gallbladder wall thickening, or obvious pericholecystic inflammatory changes.? PANCREAS: Unremarkable.? SPLEEN: Unremarkable.? ADRENAL GLANDS: Unremarkable.? KIDNEYS AND URETERS: A 5 mm calculus in the left mid ureter at the level of the L3 vertebral body produces mild left proximal hydroureteronephrosis. Point attenuation of this calculus measures 1229 Hounsfield units. No significant surrounding perinephric or periureteral fat stranding. The kidneys are normal in size, shape, and attenuation. No right-sided hydronephrosis, hydroureter, or calculi seen. No additional left-sided renal calculi. BLADDER: Unremarkable.? GASTROINTESTINAL TRACT: Stomach, small bowel, and colon are normal in caliber. No bowel wall thickening or surrounding inflammatory changes. Appendix is normal. No intraperitoneal free fluid or free air.? ABDOMINAL WALL: No significant hernia is appreciated.? LYMPH NODES: Normal. VASCULAR: Unremarkable. PELVIC VISCERA: The prostate and seminal vesicles are unremarkable.? OSSEOUS STRUCTURES: Mild scoliotic curvature in the thoracolumbar spine. No acute osseous abnormalities. Posterior disc protrusion is evident at the L4-L5 level.? CT/CT abdomen pelvis wo con IMPRESSION: 1. A 5 mm calculus at the left mid ureter produces mild proximal hydroureteronephrosis. 2. Hepatic steatosis.? Discharge Plan Discharge Clinical Impression: Ureterolithiasis Patient Disposition: Home, Self-Care Instructions: Kidney Stones (ED) Additional Instructions: Please follow-up with your primary care physician tomorrow. If you have any worsening or new symptoms, please return to the emergency room or call 911 Prescriptions: New tamsulosin 0.4 mg capsule 0.4 mg PO DAILY Qty: 7 RF: 0 ketorolac 10 mg tablet 10 mg PO TID PRN (Reason: pain) 3 Days Qty: 10 RF: 0 ondansetron HCl [Zofran] 4 mg tablet 4 mg PO Q6H PRN (Reason: nausea and vomiting) Qty: 14 RF: 0 prednisone 20 mg tablet 20 mg PO DAILY Qty: 4 RF: 0 No Action montelukast [Singulair] 10 mg tablet 10 mg PO BEDTIME Qty: 30 RF: 0 prednisone 20 mg tablet 60 mg PO DAILY 5 Days Qty: 15 RF: 0 diphenhydramine HCl [Benadryl] 25 mg capsule 25 mg PO Q6H 3 Days Qty: 12 RF: 0 famotidine [Pepcid] 20 mg tablet 20 mg PO BID Qty: 10 RF: 0 PMFSH Past Medical History Medical History Kidney stone Kidney stones No known health problems Urticaria Social History Social History Alcohol intake: never Advance Directives: No
[2020-12-29] MEDS: 0.9 % Sodium Chloride 1,000 ML 999 ML IVCONT (11:08)
[2020-12-29 11:10] LABS: MANUAL DIFF FLAG NO
[2020-12-29] MEDS: ondansetron HCL 4 MG/2 ML VIAL IVPUSH (11:10)
[2020-12-29] MEDS: Ketorolac Tromethamine 15 MG/ML VIAL 30 MG IVPUSH (11:10)
[2020-12-29 11:11] LABS: Basophils Percent Auto 0.2 % (0-2); Eosinophils Absolute Auto 0.6 X10*3/uL (0.0-0.4); Eosinophils Percent Auto 5.2 % (0-4); Hematocrit 49.1 % (42-52); Hemoglobin 16.6 g/dl (14.0-18.0); Imm Gran Abs Auto 0.06 X10*3/uL (0.00-0.03); Imm Gran Pct Auto 0.5 % (0.0-0.4); Lymphocytes Percent Auto 16.9 % (20-40); Mean Corpuscular HGB Conc 33.8 g/dl (31.0-36.0); Mean Corpuscular Hemoglobin 30.9 pg (27.0-33.0); Mean Corpuscular Volume 91.3 fL (80-98); Mean Platelet Volume 10.7 fL (9.4-12.4); Monocytes Absolute Auto 0.7 X10*3/uL (0.1-1.2); Monocytes Percent Auto 6.2 % (2-11); Neutrophils Absolute Auto 8.2 X10*3/uL (2.0-8.3); Platelet Count 216 X10*3/uL (160-400); Red Blood Count 5.38 X10*6/uL (4.60-5.80); Red Cell Distribution Width 12.9 % (11.0-16.0); White Blood Count 11.6 X10*3/uL (4.8-10.8)
[2020-12-29 11:13] LABS: Appearance Urine CLEAR; Color Urine YELLOW; Glucose Urine UA NEG (NEG); Leukocyte Esterase Urine NEG (NEG); Nitrite Urine NEG (NEG); Specific Gravity - Urine >= 1.030 (1.005-1.025); UACC Culture Trigger NO; Urine Blood 2+ (NEG); Urine Ketones NEG (NEG); Urine Protein TRACE MG/DL (NEG-TRACE)
[2020-12-29 11:20] LABS: WBC Urine 0-2 /HPF (0-4)
[2020-12-29 11:21] LABS: Mucus Urine TRACE /LPF; Squamous Epithelial Cell Urine TRACE /LPF
--- NOTE | 2020-12-29 11:46 | PC.NURSE ---
no pain, nad
[2020-12-29 11:48] LABS: Alanine Aminotransferase 36 U/L (0-40); Albumin Level 4.7 g/dL (3.5-5.0); Alkaline Phosphatase 82 U/L (39-117); Anion Gap 15 (12-20); Aspartate Amino Transferase 27 U/L (5-37); Bilirubin Direct < 0.2 mg/dL (0.0-0.5); Bilirubin Total < 0.2 mg/dL (0.0-1.0); Blood Urea Nitrogen 8 mg/dL (9-16); Carbon Dioxide 24 mmol/L (22-29); Chloride 109 mmol/L (96-108); Estimated Glomerular Filt Rate > 60; Glucose Random 106 mg/dL (60-115); Lipase 19 U/L (8-78); Potassium 4.7 mmol/L (3.3-5.1); Sodium 143 mmol/L (135-145); Total Protein 7.3 g/dL (6.5-8.0)
[2020-12-29 12:27] VITALS: BP 105/58; PULSE 70; RESP 19; TEMP 36.9; O2SAT 97
== END 2020-12-29 13:59 | disposition home or self-care (01) ==
PROVIDERS: Emergency Provider Emergency Medicine
DX: N20.1 Calculus of ureter (principal); R10.32 Left lower quadrant pain; Z79.899 Other long term (current) drug therapy
CPT/HCPCS: 36415; 74176; 80048; 80076; 81001; 83690; 85025; 96365; 96375; 99284; J1885; J2405

== ENCOUNTER 2023-12-30 23:04 | Emergency (ER) | payer OTHER, SELFPAY ==
[2023-12-30 23:18] VITALS: BP 136/70; BP 136/86; PULSE 110; PULSE 124; RESP 18; TEMP 36.7; O2SAT 97; O2SAT 98; BMI 29.6
--- NOTE | 2023-12-30 23:27 | ECG_ITS ---
Test Reason : palpatatons Blood Pressure : / mmHG Vent. Rate : 110 BPM Atrial Rate : 110 BPM P-R Int : 142 ms QRS Dur : 088 ms QT Int : 318 ms P-R-T Axes : 064 061 040 degrees QTc Int : 430 ms Sinus tachycardia Otherwise normal ECG No previous ECGs available Referred By: Generic ED Physician Electronically Signed By:RIA SAHA
[2023-12-30 23:43] LABS: MANUAL DIFF FLAG NO
[2023-12-30 23:48] LABS: Basophils Absolute Auto 0.1 X10*3/uL (0.0-0.2); Basophils Percent Auto 0.5 % (0-2); Eosinophils Absolute Auto 0.2 X10*3/uL (0.0-0.4); Eosinophils Percent Auto 1.8 % (0-4); Hematocrit 41.6 % (42.0-52.0); Hemoglobin 14.3 g/dl (14.0-18.0); Imm Gran Abs Auto 0.04 X10*3/uL (0.00-0.03); Imm Gran Pct Auto 0.4 % (0.0-0.4); Lymphocytes Absolute Auto 1.7 X10*3/uL (1.2-4.9); Lymphocytes Percent Auto 16.3 % (20-40); Mean Corpuscular HGB Conc 34.4 g/dl (31.0-36.0); Mean Corpuscular Volume 93.1 fL (80.0-98.0); Mean Platelet Volume 10.3 fL (9.4-12.4); Monocytes Absolute Auto 1.1 X10*3/uL (0.1-1.2); Monocytes Percent Auto 10.8 % (2-11); Neutrophils Absolute Auto 7.2 x10*3/uL (2.0-8.3); Neutrophils Percent Auto 70.2 % (45-73); Platelet Count 179 X10*3/uL (160-400); Red Blood Count 4.47 X10*6/uL (4.60-5.80); Red Cell Distribution Width 13.2 % (11.0-16.0); White Blood Count 10.2 X10*3/uL (4.8-10.8)
[2023-12-31 00:13] LABS: Alanine Aminotransferase 11 U/L (0-40); Albumin Level 4.3 g/dL (3.5-5.0); Alkaline Phosphatase 71 U/L (39-117); Anion Gap 14 (12-20); Aspartate Amino Transferase 15 U/L (5-37); Bilirubin Total 0.2 mg/dL (0.0-1.0); Blood Urea Nitrogen 11 mg/dL (9-16); Calcium 9.4 mg/dL (8.4-10.2); Carbon Dioxide 24 mmol/L (22-29); Chloride 106 mmol/L (96-108); Creatinine Clr Calc Pharmacy 122.1; Estimated Glomerular Filt Rate > 60; Glucose Random 119 mg/dL (60-115); Potassium 3.8 mmol/L (3.3-5.1); Sodium 140 mmol/L (135-145)
[2023-12-31 00:15] LABS: Troponin-I High Sensitivity < 2.7 ng/L (<3.5-35.0)
--- NOTE | 2023-12-31 00:26 | ED.GENADULT ---
HPI - General Adult General Chief complaint: General Medical Stated complaint: smoked weed and arm began tingling, heart racing Time Seen by Provider: 12/31/23 00:17 Source: patient Mode of arrival: ambulatory Limitations: no limitations History of Present Illness ED Provider: Dr. Mayra Loo HPI narrative: Patient comes to the emergency room complaining of palpitations after using marijuana. Patient states that he bought it from a friend. Patient states that he only uses marijuana no other drugs. Patient requesting to do a urine tox screen to check if the marijuana that his using is laced with any of the common drugs. Patient states that when he arrived, he had palpitations, no chest pain or shortness of breath. Patient states that this time he is feeling better. Patient states that this night here a took his home medications clonidine, cetirizine and quetiapine Related Data Previous Rx's ?Medication ?Instructions ?Recorded diphenhydramine HCl 25 mg capsule 25 mg PO Q6H 3 days #12 caps 03/02/20 (Benadryl) prednisone 20 mg tablet 60 mg (3 x 20 mg) PO DAILY 5 days 03/02/20 #15 tabs montelukast 10 mg tablet 10 mg PO BEDTIME #30 tabs 03/25/20 (Singulair) famotidine 20 mg tablet (Pepcid) 20 mg PO BID #10 tabs 03/27/20 ketorolac 10 mg tablet 10 mg PO TID PRN pain 3 days #10 12/29/20 tabs ondansetron HCl 4 mg tablet 4 mg PO Q6H PRN nausea and 12/29/20 (Zofran) vomiting #14 tabs prednisone 20 mg tablet 20 mg PO DAILY #4 tabs 12/29/20 tamsulosin 0.4 mg capsule 0.4 mg PO DAILY #7 caps 12/29/20 Allergies Allergy/AdvReac Type Severity Reaction Status Date / Time No Known Allergies Allergy Verified 12/30/23 23:19 [No Known Allergies*] Review of Systems Review of Systems: Constitutional : No Weight loss, No Fever, No Chills, No Night Sweats, No Fatigue, No Malaise ENT/Mouth : No Hearing loss, No Ear Pain, No Nasal Congestion, No Sinus Pain, No Hoarseness, No sore throat, No Rhinorrhea, No Swallowing Difficulty Eyes: No Eye Pain, No Swelling, No Redness, No Foreign Body, No Discharge, No Vision Changes Cardiovascular : No Chest Pain, No SOB, No Dyspnea on Exertion, No Orthopnea, No Edema, complaining of Palpitations Respiratory : No Cough, No Sputum, No Wheezing, No Smoke Exposure, No Dyspnea Gastrointestinal : No Nausea, No Vomiting, No Diarrhea, No Constipation, No abdominal Pain, No Hematochezia, No Melena Genitourinary : no irregular bleeding, No Dysuria, No Urinary Frequency, No Hematuria, No Urinary Incontinence, No Urgency, No Flank Pain, No Urinary Flow Changes, No Hesitancy Musculoskeletal : No joint pain, No Myalgias, No Joint Swelling Skin : No Skin Lesions, No rash Neuro : No Weakness, No Numbness, No Paresthesias, No Loss of Consciousness, No Dizziness, No Headache Psych : No Anxiety/Panic, No Depression, No SI/HI/AH/VH, admits to smoking marijuana Heme/Lymph: No Bruising, No Bleeding,No Lymphadenopathy Endocrine : No Polyuria, No Polydipsia, No Temperature Intolerance [facility] Past Medical History Medical History Kidney stones Kidney stone Urticaria No known health problems Social History Social History Alcohol intake: never Smoked in Last 30 Days: No Use of substances other than those prescribed or required for medical reasons: Yes Substance Use Type: Marijuana Advance Directives: No Advance Directives Information Provided: No Physical Exam ED Vital Signs: Vital Signs - 24 hr 12/30/23 23:18 12/31/23 00:36 Temperature 98.1 F 98.5 F Pulse Rate 110 H 96 Respiratory Rate 18 16 Blood Pressure 136/86 130/80 Pulse Oximetry 98 98 Oxygen Delivery Method Room Air Room Air BMI result Body Mass Index 29.6 Const Other: Appearance: Alert. Oriented X3. No acute distress. Eyes: Pupils equal, round and reactive to light. ENT: Pharynx normal. Neck: Normal inspection. Neck supple. No lymph nodes noted. No crepitus CVS: Normal heart rate and rhythm. Pulses normal. Normal S1 and S2 Respiratory: No respiratory distress. Breath sounds normal. No Wheezing. No rales Abdomen: Soft and nontender. No rigidity. No distention. Skin: Skin warm and dry. Normal skin color. Normal skin turgor. Extremities: No lower extremity edema. No Lacerations. No Rash Neuro: Oriented X 3. No motor deficit. No sensory deficit. Moving all extremities. No slurred speech. CN 2 through 12 grossly intact Psych: calm, cooperative, normal affect Medical Decision Making Medical Decision Making [facility] Narrative: My interpretation of EKG: Sinus tachycardia, heart rate 110, no ST segment depression or elevation, no T-wave inversion, QTC 430 -CBC chemistry troponin within normal limits -urine toxicology negative for other drugs other than THC Differential Diagnosis Differential Diagnoses: The differential diagnosis associated with the presentation includes (Palpitations, polysubstance abuse, ETOH, anxiety) Lab Data 12/30/23 23:38 12/30/23 23:38 Labs: Lab Results 12/30/23 12/31/23 Range/Units 23:38 00:30 WBC 10.2 (4.8-10.8) X10*3/uL RBC 4.47 L (4.60-5.80) X10*6/uL Hgb 14.3 (14.0-18.0) g/dl Hct 41.6 L (42.0-52.0) % MCV 93.1 (80.0-98.0) fL MCH 32.0 (27.0-33.0) pg MCHC 34.4 (31.0-36.0) g/dl RDW 13.2 (11.0-16.0) % Plt Count 179 (160-400) X10*3/uL MPV 10.3 (9.4-12.4) fL Immature Gran % (Auto) 0.4 (0.0-0.4) % Neut % (Auto) 70.2 (45-73) % Lymph % (Auto) 16.3 L (20-40) % [place] % (Auto) 10.8 (2-11) % Eos % (Auto) 1.8 (0-4) % Baso % (Auto) 0.5 (0-2) % Lymph # (Auto) 1.7 (1.2-4.9) X10*3/uL [place] # (Auto) 1.1 (0.1-1.2) X10*3/uL Eos # (Auto) 0.2 (0.0-0.4) X10*3/uL Baso # (Auto) 0.1 (0.0-0.2) X10*3/uL Abs Immat Gran (auto) 0.04 H (0.00-0.03) X10*3/uL Absolute Neuts (auto) 7.2 (2.0-8.3) x10*3/uL Absolute Nucleated RBC 0.000 (0.0-0.012) X10*3/uL Nucleated RBC % (auto) 0.0 (0.0-0.2) /100WBC Sodium 140 (135-145) mmol/L Potassium 3.8 (3.3-5.1) mmol/L Chloride 106 (96-108) mmol/L Carbon Dioxide 24 (22-29) mmol/L Anion Gap 14 (12-20) BUN 11 (9-16) mg/dL Creatinine 1.04 (0.5-1.4) mg/dL Estim Creat Clear Calc 122.1 Estimated GFR > 60 Random Glucose 119 H (60-115) mg/dL Calcium 9.4 (8.4-10.2) mg/dL Total Bilirubin 0.2 (0.0-1.0) mg/dL AST 15 (5-37) U/L ALT 11 (0-40) U/L Alkaline Phosphatase 71 (39-117) U/L Troponin I High Sens < 2.7 (<3.5-35.0) ng/L Total Protein 7.0 (6.5-8.0) g/dL Albumin 4.3 (3.5-5.0) g/dL Urine Opiates Screen Not Detected (Not Detect) Ur Buprenorphine Scrn Not Detected (Not Detect) ng/mL Ur Oxycodone Screen Not Detected (Not Detect) ng/mL Urine Methadone Screen Not Detected (Not Detect) ng/mL Urine Fentanyl Screen Not Detected (Not Detect) Ur Barbiturates Screen Not Detected (Not Detect) Ur Phencyclidine Scrn Not Detected (Not Detect) Ur Amphetamines Screen Not Detected (Not Detect) U Benzodiazepines Scrn Not Detected (Not Detect) Urine Cocaine Screen Not Detected (Not Detect) U Marijuana (THC) Screen POSITIVE H (Not Detect) Discharge Plan Discharge Clinical Impression: Palpitations Patient Disposition: Home, Self-Care Instructions: Heart Palpitations (ED) Additional Instructions: Please follow-up with your primary care physician mattyorrow. If you have any worsening or new symptoms, please return to the emergency room or call 911 Prescriptions: No Action montelukast [Singulair] 10 mg tablet 10 mg PO BEDTIME Qty: 30 0RF prednisone 20 mg tablet 60 mg PO DAILY 5 Days Qty: 15 0RF diphenhydramine HCl [Benadryl] 25 mg capsule 25 mg PO Q6H 3 Days Qty: 12 0RF famotidine [Pepcid] 20 mg tablet 20 mg PO BID Qty: 10 0RF tamsulosin 0.4 mg capsule 0.4 mg PO DAILY Qty: 7 0RF ketorolac 10 mg tablet 10 mg PO TID PRN (Reason: pain) 3 Days Qty: 10 0RF ondansetron HCl [Zofran] 4 mg tablet 4 mg PO Q6H PRN (Reason: nausea and vomiting) Qty: 14 0RF prednisone 20 mg tablet 20 mg PO DAILY Qty: 4 0RF Print Language: [place]
--- NOTE | 2023-12-31 00:34 | PC.NURSE ---
pt biba from home, a&ox4, respirations even and unlabored. pt reports prior to arrival he had smoked weed from a friend and reports he had a panic attack. pt reports he is a daily smoker but reports he has never felt this way before. pt reports he fears this may have been laced. pt at this time reports he feels calm, denies si/hi. pt urine sample obtained and sent to lab.
[2023-12-31 00:36] VITALS: BP 130/80; PULSE 96; RESP 16; TEMP 36.9; O2SAT 98
--- NOTE | 2023-12-31 00:40 | MHC.EDTECH ---
Patient came in from triage,changed into hospital attire,rounds and vitals completed,patient is resting quietly,call herrera in reach
[2023-12-31 00:51] LABS: Amphetamine Screen Urine Not Detected (Not Detect); Barbiturates, Urine Not Detected (Not Detect); Benzodiazepines Screen Urine Not Detected (Not Detect); Buprenorphine Scr Not Detected (Not Detect); Cannabinoid Screen Urine POSITIVE (Not Detect); Cocaine Screen Urine Not Detected (Not Detect); Fentanyl, urine Not Detected (Not Detect); Methadone Screen, Urine Not Detected (Not Detect); Opiate Screen Urine Not Detected (Not Detect); Oxycodone Screen Urine Not Detected (Not Detect); Phencyclidine Screen Urine Not Detected (Not Detect)
[2023-12-31 01:06] VITALS: BP 130/80; PULSE 96; RESP 16; TEMP 36.9; O2SAT 98
== END 2023-12-31 01:07 | disposition home or self-care (01) ==
PROVIDERS: Emergency Provider Emergency Medicine; PCP Internal Medicine
DX: R00.2 Palpitations (principal); F12.90 Cannabis use, unspecified, uncomplicated; Z79.899 Other long term (current) drug therapy
CPT/HCPCS: 36415; 80053; 80307; 84484; 85025; 93005; 99283; 99284